=== PATIENT | male | born 1985 | race Caucasian/White ===

== ENCOUNTER 2021-07-19 08:22 | Emergency (ER) | payer OTHER ==
[2021-07-19 08:29] VITALS: BP 110/74; PULSE 72; TEMP 98.3; BMI 26.6
[2021-07-19 10:11] LABS: EPI CELLS 4 /uL (0-25.1); HYALINE CASTS 0 /uL (0-3.1); URINE APPEARANCE CLEAR; URINE BACTERIA 14 /uL (0-1359); URINE BILIRUBIN NEGATIVE (NEGATIVE); URINE COLOR YELLOW; URINE GLUCOSE (UA) NEGATIVE (NEGATIVE); URINE KETONE NEGATIVE (NEGATIVE); URINE LEUK ESTERASE NEGATIVE (NEGATIVE); URINE NITRITE NEGATIVE (NEGATIVE); URINE PROTEIN TRACE (NEGATIVE); URINE RBC 244 /uL (0-23.9); URINE WBC 7 /uL (0-25.8)
== END 2021-07-19 10:00 | disposition home or self-care (01) ==
LOC: JER 08:22
DX: R10.9 Unspecified abdominal pain (principal)
CPT/HCPCS: 81003; 87086; 88300-TC; 99283-25